=== PATIENT | female | born 1945 | race Caucasian/White ===

== ENCOUNTER 2021-09-29 08:03 | Emergency (ER) | payer MEDICARE, SELFPAY ==
[2021-09-29] VITALS (10 sets, daily range): BP systolic 140–181; BP diastolic 80–100; PULSE 71–77; RESP 18; TEMP 37.4; O2SAT 93–96; BMI 28.3
--- NOTE | 2021-09-29 08:20 | ECG_ITS ---
APPROVED REPORT Exam: Resting ECG HR:77 bpm ECG Measurements Heart Rate 77 AXES NV 182 P 89 QRSd 70 QRS 54 QT 418 T 61 QTc 449 Conclusion SINUS RHYTHM WITH OCCASIONAL SUPRAVENTRICULAR PREMATURE COMPLEXES BORDERLINE ECG UNCONFIRMED REPORT Electronically signed by : Nash Wilson MD 09/29/2021 14:19:21
--- NOTE | 2021-09-29 08:31 | XR_ITS ---
FINAL REPORT CLINICAL HISTORY: Acute cough FINDINGS: A single view of the chest was obtained. The heart is normal in size. The mediastinum is unremarkable. There is mild scarring or atelectasis in the lung bases. There is no pleural effusion. There is no pneumothorax. A small hiatal hernia is seen. A chronic right 6th lateral rib fracture is noted. There is a calcification superior to the right humeral head consistent with calcific tendinitis. IMPRESSION: No acute cardiopulmonary process. Reviewed, Interpreted and Dictated by Nick Andersen III, MD Transcribed by Lissette Diana Authenticated and [facility]
[2021-09-29 08:39] LABS: Basophils # 0.1 K/mm3 (0-0.2); Basophils % 1.8 % (0.1-2.0); Eosinophils # 0.3 K/mm3 (0.0-0.4); Eosinophils % 4.3 % (0.1-12.0); Hematocrit 45.4 % (37.0-47.0); Hemoglobin 14.5 g/dL (12.2-16.2); Lymphocytes # 1.4 K/mm3 (0.7-4.5); Lymphocytes % 19.8 % (10-50); Mean Corpuscular Hemoglobin 29.2 pg (27.0-31.2); Mean Corpuscular Volume 91.4 fl (81-99); Mean Platelet Volume 7.6 fl (7.4-10.4); Monocytes # 0.4 K/mm3 (0.1-1.0); Monocytes % 6.1 % (1.7-9.3); Neutrophils # 4.9 K/mm3 (1.8-7.8); Platelet Count 420 K/mm3 (142-424); Red Blood Count 4.96 M/mm3 (4.20-5.40); Red Cell Distribution Width 13.7 % (11.5-17.5); White Blood Count 7.3 K/mm3 (4.8-10.8)
[2021-09-29 08:41] LABS: Alanine Aminotransferase 11 U/L (12-78); Albumin Level 4.2 g/dl (3.5-5.0); Albumin/Globulin Ratio 1.6 (1.1-1.8); Alkaline Phosphatase 90 U/L (38-126); Anion Gap 8.1 mEq/L (5-15); Aspartate Amino Transferase 27 U/L (14-36); Blood Urea Nitrogen 12 mg/dl (7-17); Calcium 9.4 mg/dl (8.4-10.2); Carbon Dioxide 34 mmol/L (22.0-30.0); Chloride 98 mmol/L (98-107); Estimated Glomerular Filt Rate 82 ml/min (>60); GFR (African American) 99 ML/MIN (>60); Globulin 2.7 g/dL (1.3-3.2); Glucose 114 mg/dl (74-100); Lipase 40 U/L (23-300); Potassium 4.1 mmoL/L (3.5-5.1); Sodium 136 mmol/L (136-145); Total Protein,Serum 6.9 g/dl (6.3-8.2)
[2021-09-29 08:42] LABS: Bilirubin,Total < 0.1 mg/dl (0.2-1.3)
--- NOTE | 2021-09-29 08:43 | PC.NURSE ---
radiology at bedside
[2021-09-29 08:54] LABS: Troponin I < 0.01 ng/ml (0.00-0.034)
--- NOTE | 2021-09-29 08:54 | PC.NURSE ---
pain meds given, pt resting
--- NOTE | 2021-09-29 09:03 | PC.NURSE ---
when pt sleeps O2 SAT decreases to 87% easily awakened O2 SAT INCREASES up to 96% pt resting comfortably
--- NOTE | 2021-09-29 09:22 | [facility].EDGENADL ---
ED Disposition Clinical Impression: Nonspecific chest pain Thoracic myofascial strain Qualifiers: Encounter type: initial encounter Qualified Code(s): S29.019A - Strain of muscle and tendon of unspecified wall of thorax, initial encounter Disposition: Home, Self-Care Condition on Discharge: Good Instructions: DI for Thoracic Back Pain Prescriptions: methocarbamoL [Methocarbamol] 750 mg PO QID 7 Days #28 tab Transmission Status: Pending to [facility]/pharmacy #[id number] Referrals: Provider,Referral, [Primary Care Provider] - - Critical Care Critical Care Time: No Attestation: On 09/29/21, the high probability of a clinically significant, sudden or life threatening deterioration of the following system(s) required my full and direct attention, intervention and personal management. The time I documented below is in addition to time spent performing reported procedures but includes the following listed in this critical care notation. Medical Decision Making - Medical Records Medical records reviewed: Yes: I reviewed the patient's medical records. - Stepan Inquiry Pt receiving controlled substance: Yes Stepan was queried for this patient: Yes Reference #:: [id number] Risks and benefits of using a controlled substance: were discussed with pt by me Vital Signs: 09/29/21 08:05 09/29/21 08:55 09/29/21 09:31 Temperature 99.4 F Temperature Source Oral Pulse Rate 71 71 Pulse Rate [Left Radial] 76 Respiratory Rate 18 18 18 Blood Pressure 176/100 H 147/80 H Blood Pressure [Right Arm] 181/97 H Blood Pressure Mean 126 108 Blood Pressure Mean [Right Arm] 125 Blood Pressure Source [Right Arm] Automatic Cuff Blood Pressure Position [Right Arm] Sitting 02 Sat by Pulse Oximetry 93 L 96 96 Oxygen Delivery Method Room Air 09/29/21 10:00 09/29/21 10:30 09/29/21 11:00 Temperature Temperature Source Pulse Rate 74 77 73 Pulse Rate [Left Radial] Respiratory Rate 18 18 Blood Pressure 145/80 H 158/92 H 164/84 H Blood Pressure [Right Arm] Blood Pressure Mean 110 114 123 Blood Pressure Mean [Right Arm] Blood Pressure Source [Right Arm] Blood Pressure Position [Right Arm] 02 Sat by Pulse Oximetry 95 94 L 95 Oxygen Delivery Method 09/29/21 11:25 09/29/21 11:30 Temperature Temperature Source Pulse Rate 71 75 Pulse Rate [Left Radial] Respiratory Rate Blood Pressure 142/89 H 140/80 Blood Pressure [Right Arm] Blood Pressure Mean 106 107 Blood Pressure Mean [Right Arm] Blood Pressure Source [Right Arm] Blood Pressure Position [Right Arm] 02 Sat by Pulse Oximetry 94 L 94 L Oxygen Delivery Method - Lab Data Lab Results 09/29/21 08:20: WBC 7.3, RBC 4.96, Hgb 14.5, Hct 45.4, MCV 91.4, MCH 29.2, MCHC 32.0, RDW 13.7, Plt Count 420, MPV 7.6, Neut % (Auto) 68.0, Lymph % (Auto) 19.8, Hood % (Auto) 6.1, Eos % (Auto) 4.3, Baso % (Auto) 1.8, Neut # (Auto) 4.9, Lymph # (Auto) 1.4, Hood # (Auto) 0.4, Eos # (Auto) 0.3, Baso # (Auto) 0.1 09/29/21 08:20: Sodium 136, Potassium 4.1, Chloride 98, Carbon Dioxide 34 H, Anion Gap 8.1, BUN 12, Creatinine 0.70, Estimated GFR 82, Est GFR ( Amer) 99, Glucose 114 H, Calcium 9.4, Total Bilirubin < 0.1 L, AST 27, ALT 11 L, Alkaline Phosphatase 90, Troponin I < 0.01, NT-Pro-B Natriuret Pep 85.0, Total Protein 6.9, Albumin 4.2, Globulin 2.7, Albumin/Globulin Ratio 1.6, Lipase 40 09/29/21 11:10: Urine Color Yellow, Urine Appearance Clear, Urine pH 8.0, Ur Specific [place] 1.015, Urine Protein Negative, Urine Glucose (UA) Negative, Urine Ketones Negative, Urine Blood Negative, Urine Nitrate Negative, Urine Bilirubin Negative, Urine Urobilinogen 0.2, Ur Leukocyte Esterase Negative, Urine RBC Occasional, Urine WBC None, Ur Squamous Epith Cells 3-5, Urine Bacteria Trace Result diagrams: 09/29/21 08:20 09/29/21 08:20 Orders (Tests/Meds): ED MEDICATIONS Discontinued Medications Generic Name Dose Route Start Last Admin Trade Name
--- NOTE | 2021-09-29 09:53 | PC.NURSE ---
rounded on patient. asked if they were doing ok and needed anything. patient stated that they were ok and nothing needed at this time.
[2021-09-29 11:19] LABS: Microscopic, Urine URINE MICROSCOPIC (MICROSCOPIC)
[2021-09-29 11:21] LABS: Appearance,Urine CLEAR (Clear); Bilirubin,Urine Negative (Negative); Blood, Urine Negative (Negative); Color,Urine YELLOW (Yellow); Glucose,Urine (UA) Negative (Negative); Ketones,Urine Negative (Negative); Leukocyte Esterase,Urine Negative (Negative); Nitrate,Urine Negative (Negative); Protein,Urine Negative (Negative); Specific Gravity, Urine 1.015 (1.005-1.030); Urobilinogen,Urine 0.2 EU/dl (0.2)
--- NOTE | 2021-09-29 11:25 | PC.NURSE ---
rounded on patient. patient asked for a warm blanket. patient received a warm blanket and no other needs at this time
[2021-09-29 11:35] LABS: Bacteria,Urine Trace /lpf; RBC,Urine Occasional #/hpf (0-3)
== END 2021-09-29 12:31 | disposition home or self-care (01) ==
PROVIDERS: Emergency Provider Emergency Medicine
DX: R07.9 Chest pain, unspecified (principal); S29.019A Strain of muscle and tendon of unspecified wall of thorax, initial encounter; Z79.899 Other long term (current) drug therapy; Z88.0 Allergy status to penicillin
CPT/HCPCS: 71045; 80053; 81001; 83690; 83880; 84484; 85025; 93005; 96374; 96375; 99284; J2405